=== PATIENT | male | born 1960 | race African-American/Black ===

== ENCOUNTER 2016-07-21 21:56 | Emergency (ER) | payer SELFPAY ==
[~2016-07-21] VITALS: Ht 190.5 cm; Wt 105.0 kg
[2016-07-21 22:30] LABS: DAU SCREEN DISCLAIMER
[2016-07-21] MEDS ORDERED: SODIUM CHLORIDE FLUSH 10ML SYR IVF ONE (22:30)
[2016-07-21] MEDS ORDERED: SODIUM CHLORIDE 0.9% 1,000ML IVBOLUS ONE (22:30)
[2016-07-21] MEDS ORDERED: PLEASE ENTER ALLERGIES MC SCH ×2 (22:30)
[2016-07-21] MEDS ORDERED: LORazepam 2 MG/ML, 1ML IVPush ONE (22:30)
[2016-07-21 22:37] LABS: ASPARTATE AMINO TRANSFERASE 27 U/L (15-37); BLOOD UREA NITROGEN 11 mg/dL (7-18)
[2016-07-21] MEDS ORDERED: CLON0.1T PO (22:57)
[2016-07-21] MEDS ORDERED: TRAZ100T15 PO (22:57)
[2016-07-21 23:37] LABS: IS PT STATUS REG ER OR PRE ER? YES
[2016-07-21 23:45] VITALS: BP 117/68
== END 2016-07-22 00:46 | disposition home or self-care (01) ==
LOC: ED 23:21
DX: G40.319 Generalized idiopathic epilepsy and epileptic syndromes, intractable, without status epilepticus (principal); M25.512 Pain in left shoulder; F10.20 Alcohol dependence, uncomplicated
CPT/HCPCS: 36415; 70450; 73030; 80053; 80307; 84484; 85025; 93005; 96360; 96361; 99285; J7030

== ENCOUNTER 2016-07-22 21:00 | Emergency (ER) | payer SELFPAY ==
[~2016-07-22] VITALS: Ht 190.5 cm; Wt 110.0 kg
[~2016-07-22 21:00] MED LIST: CLON0.1T PO; TRAZ100T15 PO
[2016-07-23 01:44] LABS: ASPARTATE AMINO TRANSFERASE 32 U/L (15-37); BLOOD UREA NITROGEN 12 mg/dL (7-18)
[2016-07-23 02:35] VITALS: BP 112/75
== END 2016-07-23 02:38 | disposition home or self-care (01) ==
LOC: ED 21:30
DX: F10.129 Alcohol abuse with intoxication, unspecified (principal); G40.909 Epilepsy, unspecified, not intractable, without status epilepticus; D49.6 Neoplasm of unspecified behavior of brain
CPT/HCPCS: 36415; 80053; 80307; 85025; 99284